=== PATIENT | male | born 1995 | race Two or more races ===

== ENCOUNTER 2022-10-23 18:14 | Inpatient (IN) | payer OTHER ==
[~2022-10-23] VITALS: Ht 182.9 cm; Wt 95.3 kg
[2022-10-25] MEDS ORDERED: AMOX-CLAV 875-1 EACH PO (16:16)
[2022-10-25] MEDS ORDERED: OXYC1TAB9 PO (16:18)
== END 2022-10-25 19:22 | disposition home or self-care (01) | DRG 346 ==
LOC: ER 18:14 → SURH 22:17
PROVIDERS: ADMIT Surgery; ATTEND Surgery
PROC: 0D9P8ZZ Drainage of Rectum, Via Natural or Artificial Opening Endoscopic (ICD-10-PCS; principal; 2022-10-23)
PROC: 3E0T3BZ Introduction of Anesthetic Agent into Peripheral Nerves and Plexi, Percutaneous Approach (ICD-10-PCS; 2022-10-23)
DX: K61.1 Rectal abscess (principal); K62.89 Other specified diseases of anus and rectum